=== PATIENT | female | born 1995 | race Asian ===

== ENCOUNTER 2022-08-01 12:54 | Outpatient (CLI) | payer BC, MEDICAID | END 2022-08-01 12:55 | disposition critical access hospital (66) | LOC: EMS 12:54 | DX: R06.00 Dyspnea, unspecified (principal) | CPT/HCPCS: A0425; A0427 ==

== ENCOUNTER 2022-08-01 13:03 | Emergency (ER) | payer BC, MEDICAID ==
[2022-08-01] MEDS ORDERED: IPRATROPIUM/ALBUTEROL 3 ML NEB INH STA (13:11)
--- NOTE | 2022-08-01 13:17 | ED Physician Documentation ---
History of Present Illness - Stated complaint Stated Complaint: SOA - Chief complaint Chief Complaint: Resp - History obtained from History obtained from: Patient, EMS - History of Present Illness Timing: Today Pain level max: 0 Pain level now: 0 - Additonal information Additional information: 26-year-old female presents to the emergency department complaining of increased difficulty breathing today. She states that she has a longstanding history of asthma. She states that she usually uses her albuterol inhaler 4-5 times a day. She is on Advair at home as well. She is here visiting, forgot her albuterol inhaler. She was on her way back home when she had difficulty breathing. She was given Solu-Medrol and albuterol with EMS. States she is feeling much better. Review of Systems Constitutional: denies: Fever, Chills Respiratory: denies: Cough GI: denies: Vomiting, Diarrhea : denies: Now EGA Skin: denies: Rash Musculoskeletal: denies: Neck pain, Back pain PD PAST MEDICAL HISTORY - Past Medical History Past Medical History: Yes Respiratory: Asthma - Past Surgical History Past Surgical History: No - Present Medications Home Medications: Ambulatory Orders Medication Instructions Recorded Confirmed Budesonide/Formoterol Fumarate 2 puffs IH BID #1 each 08/01/22 [Symbicort 80-4.5 Mcg Inhaler] - Allergies Allergies/Adverse Reactions: Allergies Allergy/AdvReac Type Severity Reaction Status Date / Time No Known Drug Allergies Allergy Verified 08/01/22 13:18 - Living Situation Living Arrangement: reports: At home - Social History Does the pt have substance abuse?: No - Family History Family history: reports: Non contributory PD ED PE NORMAL - Vitals Vital signs reviewed: Yes - General General: Alert and oriented X 3, No acute distress - HEENT HEENT: Moist mucous membranes - Neck Neck: Supple, no meningeal sign - Cardiac Cardiac: RRR, Strong equal pulses - Respiratory Respiratory: No respiratory distress, Other (Mild wheezing bilaterally) - Derm Derm: Warm and dry - Extremities Extremities: No edema, No calf tenderness / cord - Neuro Neuro: Alert and oriented X 3 - Psych Psych: Normal mood, Normal affect Results - Vitals Vitals: Vital Signs - 24 hr 08/01/22 08/01/22 13:13 13:31 Temperature 36.8 C Heart Rate 95 88 Respiratory 18 18 Rate Blood Pressure 137/72 H O2 Saturation 95 Oxygen O2 Source Room air PD Medical Decision Making - ED course Complexity details: considered differential, d/w patient ED course: 26-year-old female with an asthma exacerbation. She feels better after nebulizer treatment and steroids. EMS gave Solu-Medrol. Given a DuoNeb treatment here. I reviewed her outside pharmacy records, appears that she is on Advair. Patient states she has been on and off of this recently. She would like to try Symbicort instead. We will prescribe this and see if her insurance covers it. Patient is well-appearing, nontoxic. Afebrile. No hypoxia. No respiratory distress. Patient counseled regarding signs and symptoms for which I believe and urgent re-evaluation would be necessary. Patient with good understanding of and agreement to plan and is comfortable going home at this time This document was made in part using voice recognition software. While efforts are made to proofread this document, sound alike and grammatical errors may occur. Departure - Departure Disposition: 01 Home, Self Care Clinical Impression: Asthma exacerbation Qualifiers: Asthma severity: unspecified severity Asthma persistence: unspecified Qualified Code(s): J45.901 - Unspecified asthma with (acute) exacerbation Condition: Good Instructions: ED Reactive Airway Disease Follow-Up: your,doctor in 1 week [Other] Prescriptions: Budesonide/Formoterol Fumarate [Symbicort 80-4.5 Mcg Inhaler] 2 puffs IH BID #1 each Comments: Please follow-up with your doctor for further care. Please return if you worsen. You were given steroids and albuterol today. You were also given a DuoNeb treatment. Discharge Date/Time: 08/01/22 14:14
[2022-08-01 13:18] VITALS: BP 137/72
== END 2022-08-01 14:14 | disposition home or self-care (01) ==
LOC: ED 13:03
DX: J45.901 Unspecified asthma with (acute) exacerbation (principal)
CPT/HCPCS: 94640; 99283; 99284